=== PATIENT | male | born 1985 | race Caucasian/White ===

== ENCOUNTER 2024-08-04 11:31 | Emergency (ER) | payer MEDICAID ==
[~2024-08-04] VITALS: Ht 177.8 cm; Wt 72.7 kg
[~2024-08-04 11:31] MED LIST: CARV6.25 PO; FOLI-130 PO; LORA1TAB25 PO; MULT-660 PO; THIA100T80 PO
[2024-08-04 11:51] VITALS: TEMP 97.8
[2024-08-04 12:25] LABS: BASOPHILS % (AUTO) 0.7 % (0.0-2.0); EOSINOPHILS % (AUTO) 0.1 % (1.0-6.0); HEMATOCRIT 51.1 % (41-53); HEMOGLOBIN 17.7 g/dL (13.5-17.5); LYMPHOCYTES # (AUTO) 1.3 K/uL (1.0-4.8); LYMPHOCYTES % (AUTO) 17.6 % (22.0-44.0); MEAN CORPUSCULAR HEMOGLOBIN 29.7 pg (26.0-34.0); MEAN CORPUSCULAR HGB CONC 34.6 G/dL (31.0-37.0); MEAN CORPUSCULAR VOLUME 86 fL (80-100); MONOCYTES # (AUTO) 0.3 K/uL (0.1-1.0); MONOCYTES % (AUTO) 3.7 % (2.0-9.0); NEUTROPHILS # (AUTO) 5.8 K/uL (1.8-7.7); NEUTROPHILS % (AUTO) 77.9 % (40.0-70.0); PLATELET COUNT (AUTO) 244 K/uL (150-450); RED BLOOD CELL COUNT(AUTO) 5.96 MIL/uL (4.50-5.90); RED CELL DISTRIBUTION WIDTH 12.7 % (11.5-14.5); WHITE BLOOD COUNT (AUTO) 7.5 K/uL (4.5-11.0)
[2024-08-04 12:32] LABS: ANION GAP 20 mmol/L (8-16); CALCIUM, TOTAL 8.5 mg/dL (8.8-10.5); CARBON DIOXIDE 22 mmol/L (22-29); CHLORIDE 96 mmol/L (98-107); CREATININE 0.95 mg/dL (0.60-1.30); GLOMERULAR FILTR. RATE CALC > 60 mL/min (>60); GLUCOSE,RANDOM 112 mg/dL (70-110); POTASSIUM 3.6 mmol/L (3.5-5.1); SODIUM SERUM 138 mmol/L (136-145); UREA NITROGEN, BLOOD 10 mg/dL (7-18)
[2024-08-04 12:47] LABS: ALCOHOL, BLOOD (SERUM) 360 mg/dL (0-10)
[2024-08-04] MEDS: NICOTINE 7 MG/24 HOUR PATCH TD ONE (14:27)
[2024-08-04] MEDS ORDERED: CHLO10CA7 PO (15:37)
[2024-08-04] MEDS: ChlordiazePOXIDE HCL 25 MG CAPSULE PO ONE (15:56)
[2024-08-04 15:57] VITALS: BP 155/89; PULSE 110; RESP 16; O2SAT 98
== END 2024-08-04 17:33 | disposition home or self-care (01) ==
LOC: EMS 11:31
DX: F10.129 Alcohol abuse with intoxication, unspecified (principal); Z59.00 Homelessness unspecified; Z79.899 Other long term (current) drug therapy; Y90.6 Blood alcohol level of 120-199 mg/100 ml
CPT/HCPCS: 99283; 80048; 85025; 36415; G0480